=== PATIENT | female | born 1935 | race Hispanic/Latino ===

== ENCOUNTER 2019-04-24 10:34 | Outpatient (CLI) | payer MEDICARE ==
--- NOTE | 2019-04-24 11:35 | XRay Report ---
RIGHT KNEE HISTORY: Pain. COMPARISON: None. TECHNIQUE: 3 views of the right knee obtained. FINDINGS: Bones: No fracture or dislocation. Joint spaces: Severe osteoarthritis of the medial joint with near complete loss of the joint space an d moderate-sized medial osteophytes. The lateral joint space is normal. Patellofemoral joint osteoart hritis with narrowing and small osteophytes. Soft tissues: No significant abnormality. Additional findings: No joint effusion. IMPRESSION: 1. Moderately severe osteoarthritis involving the medial joint. 2. Moderate patellofemoral osteoarthritis. Signer Name: Brooks Nair MD Signed: 04/24/2019 11:30 AM Workstation Name: [id number]
== END 2019-04-24 10:35 | disposition home or self-care (01) ==
LOC: SPVIMAG 10:34
PROVIDERS: ATTEND Internal Medicine
DX: M17.11 Unilateral primary osteoarthritis, right knee (principal)